=== PATIENT | female | born 1960 | race Caucasian/White ===

== ENCOUNTER 2019-06-26 09:00 | Outpatient (CLI) | payer MEDICAID | END 2019-06-26 10:00 | disposition home or self-care (01) | LOC: D.MAMMO 09:00 | PROVIDERS: ATTEND Emergency Medicine | DX: Z12.31 Encounter for screening mammogram for malignant neoplasm of breast (principal) ==

== ENCOUNTER → 2019-12-02 09:11 | Outpatient (CLI) | payer MEDICAID | END | disposition home or self-care (01) | LOC: D.CT 09:11 | PROVIDERS: ATTEND Emergency Medicine | DX: R10.9 Unspecified abdominal pain (principal) ==

== ENCOUNTER → 2021-01-29 14:23 | Outpatient (CLI) | payer BC | END | disposition home or self-care (01) | LOC: D.MAMMO 01-15 11:45 | PROVIDERS: ATTEND Emergency Medicine | DX: Z12.31 Encounter for screening mammogram for malignant neoplasm of breast (principal) ==